=== PATIENT | male | born 1995 | race Caucasian/White ===

== ENCOUNTER 2022-01-19 13:36 | Outpatient (CLI) | payer OTHER, SELFPAY | END 2022-01-19 13:37 | disposition home or self-care (01) | LOC: ANHAUDIO 13:40 | PROVIDERS: Visit Provider Internal Medicine | DX: Z02.89 Encounter for other administrative examinations (principal); H90.41 Sensorineural hearing loss, unilateral, right ear, with unrestricted hearing on the contralateral side | CPT/HCPCS: 92557; 92567 ==